=== PATIENT | male | born 1950 | race Caucasian/White ===

== ENCOUNTER 2024-09-24 06:52 | Inpatient (IN) | payer MEDICARE, OTHER ==
[~2024-09-24] VITALS: Ht 180.3 cm; Wt 124.5 kg
--- NOTE | 2024-09-24 07:09 | Physician Documentation ---
History of Present Illness ~ Chief Complaint: Chest Pain Stated Complaint: CHEST PAIN Time Seen by MD: 07:03 HPI This is a very pleasant 74-year-old gentleman who self-reported history of high blood pressure, normally sees Dr. Xuan Rosa, recent visits a week ago where he had carotid ultrasound, no stress test in over a year, comes in for evaluation of sudden unprovoked chest pain that he describes as somebody sitting on my chest moderate to severe in its intensity, accompanied by shortness a breath, exertional end-stage your, radiating to his back. Palliated by rest. He did report diaphoresis. Never experienced anything like that in the past. The back pain is somewhat similar to his chronic back pain for which he sees chiropractor, however much more severe. He went to see his chiropractor earlier today and was told to go immediately to the emergency department. Does report some nausea. No concern for tobacco, alcohol or illicit substances use Medication Reconciliation Allergies: Coded Allergies: No Known Allergies (Unverified , 09/24/24) Review of Systems ROS 10 point review of systems was performed and unless noted above in HPI is negative for acute process/complaint. Physical Exam Vital Signs: Temperature: 97.4, Source: Temporal, Heart Rate: 69, Respiratory Rate: 15, BP: 142/63, Pulse Oximetry: 99, Weight: 124.550 Physical Exam GENERAL: Awake, alert, oriented, GCS 15, no apparent distress, non-toxic appearing, answers questions, follows commands appropriately. HEENT: Atraumatic, normocephalic, pupils equal, extraocular muscles intact, sclerae anicteric, mucus membranes moist, oropharynx is clear, no stridor. NECK: supple, full active range of motion, trachea midline, no thyromegaly, no lymphadenopathy, no JVD. CARDIOVASCULAR: regular rate/rhythm, no murmurs/gallops/rubs, Pulses are 2+ in all extremities and symmetric. Capillary refill less than 2 seconds. PULMONARY: Nonlabored, good air movement ,no respiratory distress, speaking in full sentences, clear to auscultation bilaterally, no wheezing, no ronchi, no rales, no accessory muscle use. GASTROINTESTINAL: Soft, non-tender, non-distended, normal active bowel sounds, no organomegaly, no pulsatile masses, no CVA tenderness. NEUROLOGIC: Lucid with normal mental status. Normal facial symmetry. Moves all extremities symmetrically and with purpose. No truncal ataxia. Speech is fluid without evidence of dysarthria or aphasia, no focal deficits appreciated. MUSCULOSKELETAL: There is full range of motion of all extremities. There is no joint pain or joint swelling or joint erythema. There is no muscle pain or tenderness or swelling. EXTREMITIES: warm, well-perfused, no cyanosis, no clubbing, no edema, no acute deformities. Skin: warm, dry, no rashes or lesions, no jaundice, no petechiae orpurpura. No ecchymosis. PSYCHIATRIC: Normal affect, normal insight, normal concentration. Focused exam: [] Progress Results/Orders Results/Orders Orders - JOEY STROUD DO Chest,Single View (09/24/24 06:57) Monitor (09/24/24 06:57) Saline Lock (09/24/24 06:57) Oxygen (09/24/24 06:57) Hs Troponin I W Calculations (09/24/24 09:57) Ct Chest Abdomen Pelvis (09/24/24 08:10) Completed Orders - JOEY STROUD DO Chest,Single View (09/24/24 06:57) Cbc/Diff (09/24/24 06:57) BMP (09/24/24 06:57) PBNP (09/24/24 06:57) Electrocardiogram (09/24/24 06:57) Hs Troponin I W Calculations (09/24/24 06:57) Hs Troponin I W Calculations (09/24/24 08:57) Iohexol 350mg/Ml 100ml (Omnipaque 350mg/ (09/24/24 07:51) Ct Chest Abdomen Pelvis (09/24/24 08:10) Vital Signs 09/24/24 09/24/24 09/24/24 09/24/24 06:58 07:12 07:32 08:32 Temp 97.4 97.4 97.4 Pulse 69 59 57 Resp 15 12 12 13 B/P (MAP) 142/63 153/72 (99) 152/65 (94) Pulse Ox 99 94 98 O2 Flow Rate 0 2.0 Laboratory Tests Test 09/24/24 07:05 09/24/24 09:58 White Blood Count 6.7 Red Blood Count 4.41 L Hemoglobin 14.3 Hematocrit 41.7 L Mean Corpuscular Volume 94.5 Mean Corpuscular Hemoglobin 32.4 H Mean Corpuscular Hemoglobin Concent 34.2 Red Cell Distribution Width 12.8 Platelet Count 227 Mean Platelet Volume 7.7 Neutrophils (%) (Auto) 64.3 Lymphocytes (%) (Auto) 24.9 Monocytes (%) (Auto) 8.5 Eosinophils (%) (Auto) 2.0 Basophils (%) (Auto) 0.3 Neutrophils # (Auto) 4.3 Lymphocytes # (Auto) 1.7 Monocytes # (Auto) 0.6 Eosinophils # (Auto) 0.1 Basophils # (Auto) 0.0 CBC Comment Sodium Level 140 Potassium Level 4.0 Chloride Level 103 Carbon Dioxide Level 28.8 Anion Gap 8 Blood Urea Nitrogen 22 H Creatinine 1.73 H Estimated GFR/1.73 m2 39 BUN/Creatinine Ratio 12.7 Glucose Level 115 H Calcium Level 8.7 Troponin I High Sensitivity 7 8 Pro-B-Type Natriuretic Peptide 80 Albumin 3.9 Chemistry Comments Troponin I High Sens Percent Delta 14 Troponin I Hi Sens Absolute Change 1 EKG/XRAY/CT/US/VASC/MRI EKG : Additional Comment EKG was obtained and interpreted by myself shows sinus rhythm of 72, prolonged NH interval of 225, wide QRS with a right bundle, no QT prolongation, right axis, no STEMI. Heart Score: Heart Score Response (Comments) Value History Moderate Suspicious 1 EKG Repolarization Disturb 1 Age >65 2 Risk Factors 1 or 2 risk factors 1 Total 5 Medical Decision Making Findings Facility Status: ED Holds, [facility] process The plan was discussed with the patient, who demonstrates clear understanding of the plan and is in agreement with the plan unless otherwise noted in the chart. All questions have been answered, all concerns were addressed unless otherwise documented. I was available throughout their ED stay for frequent reassessment and questions. Differential Diagnoses (considered and possible or likely): [Differential diagnosis considered includes chest wall pain, pleurisy, pneumonia, pulmonary embolus, GERD, esophagitis, gastritis, anxiety, stress reaction, costo chondritis, acute coronary syndrome, aortic dissection, pericarditis, myocarditis, or pneumothorax.] ??Differential Diagnoses (considered and unlikely, not requiring evaluation currently): [See above] MDM Data Please see HPI for the following: Independent Historians and external Records Review. Historian: [Patient] Independent Historians: ?[Record review] Medication Management: [Reviewed medication list] Social History and determinants: [Reviewed] Please see the body of the note for the following: Any independent interpretations of ECG, imaging studies. All vitals signs/haemodynamics, ordered tests were independently reviewed and interpreted by myself. Nursing triage complaint and vitals reviewed, additional nursing notes were reviewed as available and I agree unless otherwise noted or documented in contradiction in the chart Vital Signs: Independently reviewed Labs: Independently interpreted Imaging: Independently interpreted Old Medical Records: Independently reviewed, see HPI for relevant summary and information Pulse Oximetry: [99%] interpreted as [normal on room air] by me [Tours Hostess: [Regular Rate, Regular rhythm, no ectopy, NSR] reviewed and interpreted by me] Additionally notably showing: [Hemodynamics reviewed. The patient isn't febrile, not tachycardic, no evidence of hypotension respiratory distress. Laboratory studies showed no leukocytosis, no anemia, normal platelets. Metabolic panel shows acute kidney injury versus CKD. Patient reports history of CKD. Troponin is negative. Chest x-ray was obtained showing no acute cardiopulmonary disease. ] Tests considered but not ordered include: [Stress test and echo can be done on an inpatient basis] Social Determinants of Health Impact: Patient was evaluated in [facility] [place] to healthcare due to below par ratio of patient to medical providers. [] Comorbid Conditions Impacting Present Evaluation and Care/Treatment: [Multiple, see list] Management Discussions with other Healthcare Providers: [Hospitalist regarding admission] Treatment and Disposition Medication Management (Given or considered): []. See EMR for details Consideration for Hospitalization/Escalation/Deescalation of Care: Admission for observation has been considered, appears to be necessary for further workup of this gentleman is highly concerning chest pain in the setting of risk factors ?ED Course:?[No clinical deterioration.] ?Shared decision making:?[] Code status:?FULL Please see the full Electronic Medical Record for full details of nursing documentation, medications list, other records of complete past medical history and conditions, vital signs, laboratory studies, and any radiologic study interpretations by radiologists. Portions of this note were completed using [employer] dictation software and as a result there may exist minor errors in spelling. I have reviewed elements of past family and social history and agree as included in note. Departure Disposition: 09 ADMITTED INPATIENT Admitted to Inpatient Unit: to hospitalist Admission Level of Care: Med/Surg with Tele Impression: Primary Impression: Acute chest pain Condition: Stable Referrals: NO PRIMARY CARE PROVIDER (PCP) Signature Scribe Signature: No scribe Attestation: This note accurately reflects clinical decisions, work performed by myself, Joey Stroud, JOEY APONTE DO Sep 24, 2024 07:09
[2024-09-24 07:19] LABS: MEAN PLATELET VOLUME 7.7 FL (7.4-10.4); RED CELL DISTRIBUTION WIDTH 12.8 % (11.5-14.5)
--- NOTE | 2024-09-24 07:27 | RADIOLOGY REPORT ---
EXAM: XR Chest, 1 View CLINICAL INDICATION: Pain TECHNIQUE: Frontal view of the chest. COMPARISON: No relevant prior studies available. FINDINGS: LUNGS AND PLEURAL SPACES: Unremarkable. No consolidation. No pneumothorax. HEART: Unremarkable. No cardiomegaly. MEDIASTINUM: Unremarkable. Normal mediastinal contour. BONES/JOINTS: Unremarkable. No acute fracture. IMPRESSION: No acute cardiopulmonary process.
--- NOTE | 2024-09-24 07:35 | ELECTROCARDIOGRAPH REPORT ---
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 Savage Anguiano Measurements Intervals [place] Rate: 72 P: 39 CO: 225 QRS: 121 QRSD: 149 T: 4 QT: 402 QTc: 440 Interpretive Statements Sinus rhythm Supraventricular bigeminy Prolonged CO interval RBBB and LPFB Electronically Signed On 09-25-2024 10:24:[address] Savage Anguiano Please click the below link to view image of tracing.
[2024-09-24 07:42] LABS: CREATININE 1.73 MG/DL (0.60-1.10); PRO BRAIN NATRIURETIC PEPTIDE 80 PG/ML (0-125); TOTAL CARBON DIOXIDE 28.8 MMOL/L (24-32); eCRCL 41 ML/MIN; eGFR 39 ML/MIN
--- NOTE | 2024-09-24 09:01 | RADIOLOGY REPORT ---
Exam: CT CT CHEST ABDOMEN PELVIS History: severe chest pain -> rad back --> lower back Comparison Study: None Technique: CT of the chest, abdomen and pelvis was obtained without intravenous contrast. Coronal an d sagittal reformatted images are submitted. Radiation Dose Information: CT Dose: CTDI volume is 31.3 mGy. Dose-length product is 1856.2 mGy*cm Findings: Study limited without intravenous contrast. Lower neck: Unremarkable thyroid. Lungs: Scattered opacities in the right upper and right lower lobe. Pleura: No pneumothorax or pleural effusion. Central airways: Patent. Heart/Vascular Structures: The heart is normal in size. No pericardial effusion. Coronary artery ayse cifications. Normal caliber thoracic aorta. No Fat stranding. Aorta otherwise not evaluated without intravenous contrast. Lymph Nodes: No adenopathy. Liver: The liver is normal in size. No focal lesions. Gallbladder and Biliary Tree: Unremarkable gallbladder. No biliary ductal dilatation. Spleen: Unremarkable. Pancreas: Unremarkable unenhanced appearance of the pancreas. Adrenal Glands: 1.9 cm left adrenal nodule. The right adrenal gland is unremarkable. Kidneys: No intrarenal calculi or hydronephrosis. Right renal cysts. Bladder: Unremarkable Bowel: The stomach is grossly normal in appearance. Small bowel normal in caliber. Sigmoid diverticu losis without acute diverticulitis. Normal caliber appendix without inflammatory changes. Ascites: Absent. Lymphadenopathy: No mesenteric, retroperitoneal or periportal lymphadenopathy. Abdominal Wall and Mesentery: Unremarkable. Vasculature: The visualized abdominal aorta is normal in size and caliber. No fat stranding surround ing the abdominal aorta. Abdominal aorta otherwise not evaluated without intravenous contrast. Pelvic Organs: Unremarkable Musculoskeletal: No aggressive focal bony lesions, acute fractures or dislocation. Hip prosthesis. In tervertebral disc space narrowing at L5-S1 with partial fusion across the disc space. Soft tissues: Bilateral fat containing inguinal hernias. IMPRESSION: 1. Limited study without intravenous contrast. Within this limitation no acute process in the chest, abdomen or pelvis. 2. Coronary artery calcifications. 3. Colonic diverticulosis without acute diverticulitis. 4. 1.9 cm left adrenal nodule incompletely characterized on this noncontrast study. All CT scans at this medical facility are performed using dose modulation techniques as appropriate t o a performed exam including the following: Automated exposure control was utilized; adjustment of th e MA and/or KV according to patient size; and use of iterative reconstruction technique.
[2024-09-24] MEDS: PERFLUTREN PROTEIN-A MICROSPHR (Optison) 0.22 MG/ML 3ML VIAL IV ONE (11:05)
[2024-09-24] MEDS ORDERED: potassium Cl 40MEQ/1/2NS 520ml 520 ML IV PRN (11:05)
[2024-09-24] MEDS ORDERED: magnesium hydroxide 30ml (MOM) UD suspension PO PRN (11:05)
[2024-09-24] MEDS ORDERED: magnesium sulf-water 2g/50mL 50 ML IV PRN (11:05)
[2024-09-24] MEDS ORDERED: magnesium sulf-water 4G/100mL 100 ML IV PRN (11:05)
[2024-09-24] MEDS ORDERED: potassium Cl 20 mEq SR tablet PO PRN ×2 (11:05)
[2024-09-24] MEDS ORDERED: mag hydrox/Alum hydrox/simeth 30ml oral suspension PO PRN (11:05)
[2024-09-24] MEDS ORDERED: ondansetron/PF 4mg/2ml inj IV PRN (11:05)
[2024-09-24 13:45] VITALS: RESP 18; O2SAT 100
[2024-09-24 13:57] VITALS: BP 138/71; PULSE 52; RESP 18; TEMP 97.3; O2SAT 100
[2024-09-24] MEDS: normal saline 1000ml 1,000 ML IV SCH (14:23)
[2024-09-24] MEDS ORDERED: aminophylline 250mg/10ml inj. IV PRN (18:35)
[2024-09-24] MEDS ORDERED: metoprolol tartrate 1mg/ml inj IV PRN (18:35)
--- NOTE | 2024-09-24 18:40 | HISTORY AND PHYSICAL ---
History & Physical Providers to CC ~ History of Present Illness Reason for Admit\Complaint: Chest pain eval for ACS History of Present Illness This is a 74-year-old male who presents to ED with chest pain occurring this morning. The patient initially woke up this morning and had numbness and paresthesias in his left hand and arm he has noticed edema in the upper extremity for three days as well. 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 the patient has a no history of cardiac disease however follows with Dr. Rosa and has a history of bilateral lower extremity DVT and a pulmonary embolus. The patient also states he has been fatigued for greater than one-week does not have any energy. The patient does have a creatinine 1.73 on admission. His troponins has been negative and I evaluated the patient when he was in the midst of having a echocardiogram for which the residential air sealing technician mentioned there was no significant findings. The patient is admitted to the ortho floor on case monitor with a stress test ordered for the morning. Allergies: Coded Allergies: No Known Allergies (Unverified , 09/24/24) Past Medical History Past Medical History Bilateral lower extremity DVT Pulmonary embolism Throat cancer treated with chemotherapy and radiation Bladder cancer treated with surgical excision Past Surgical History Surgical History Comment Left femur ORIF with pinning Left hip arthroplasty Bladder tumor excision Family History Family History: FH: CVA (cerebrovascular accident) FATHER MOTHER FH: melanoma MOTHER Past Social History Social History Comment Does not smoke cigarettes, rare alcohol intake, denies any illicit drug use. Full code status ROS ROS Except for positives in the HPI the rest of the 14 point review systems is negative Exam Vitals: Vital Signs Date Time Temp Pulse Resp B/P (MAP) Pulse Ox O2 Delivery O2 Flow Rate FiO2 09/24/24 14:43 49 09/24/24 13:57 97.3 18 138/71 (93) 100 09/24/24 13:45 Nasal Cannula 2.0 28 General: Gen. No acute distress alert and oriented 4 Lungs clear to ascultation bilaterally, no wheezes rales or rhonchi appreciated Heart normal sinus rhythm no murmurs rubs or clicks noted Abdomen soft nontender bowel sounds are normoactive Lower extremities no clubbing cyanosis, nor edema appreciated bilaterally Diagnostic Data Last Recorded Lab Results: 09/24/24 0705 09/24/24 0705 Counseling Services Smoking & Tobacco Cessation: N/A Advance Care Planning Advanced Care plannin - 30 Minutes Problems: (1) Acute chest pain Status: Acute Additional Plan # chest pain eval for ACS Lexiscan stress test as ordered Echocardiogram # history of DVT bilaterally # history of pulmonary embolism Awaiting med reconciliation # bladder cancer Cured with the excision # throat cancer Cured with radiation and chemotherapy # kidney disease Eval for CHIOMA versus CDK with daily CMP # DVT prophylaxis SQ Lovenox I spent a total of 17 minutes on reviewing various resuscitative measures/ ACP with the patient at the time of admission. The patient has decided on full code status Date of Service: Sep 24, 2024 Billing Provider: MARYBETH BRAND DO Common Visit Codes: 88539-[id number] INP/OBS CARE (HIGH) Secondary Visit Codes: 47250-[id number] CARE PLAN 30 MINUTES MARYBETH BRAND DO Sep 24, 2024 18:40
[2024-09-24 19:08] VITALS: BP 110/75; PULSE 57; RESP 21; TEMP 97.2; O2SAT 97
--- NOTE | 2024-09-24 19:35 | CARDIOLOGY REPORT ---
APPROVED REPORT EXAM: Comprehensive 2D, Doppler, and color-flow Echocardiogram. Patient Location: 4[address] Heart Rate: 50's bpm Rhythm: SINUS BRADYCARDIA WITH TRIGEMINAL PAC's Indications CHEST PAIN Fire And Safety Helper: Ines Rosa MD Previous echo: 03-02-23 [facility] EF 65-70%, LAE, mLVH, trMR, trTR 2D Dimensions RVDd 3.0 cm IVSd 1.0 (0.7-1.1cm) LVDd 5.2 cm PWd 1.2 (0.7-1.1cm) IVSs 1.4 (0.8-1.2cm) LVDs 3.5 (2.5-4.0cm) PWs 1.8 (0.8-1.2cm) LVOT Diameter 2.15 (1.8-2.4cm) IVC 25.55 mmFS (%) 32.5 % SV 79.8 ml CO 4.1 L/min M-Mode Dimensions Left Atrium(MM) 4.08 (2.5-4.0cm) Aortic Root 3.54 (2.2-3.7cm) Aortic Cusp Exc 1.85 (1.5-2.0cm) Aortic Valve AoV Peak Jeff. 210.6 cm/s AoV VTI 43.1 cm AO Peak GR. 17.7 mmHg AO Mean GR. 9 mmHg LVOT VTI 24.81 cm LVOT Peak Jeff. 153.5 cm/s MORGAN(VTI)/BSA 2.10 cm2/m2 MORGAN (VTI) 2.10 cm2 Mitral Valve MV Peak Gr. 4 mmHg MV PHT 56 ms MVA (PHT) 3.93 cm2 MV OKua704.5 cm/s LEFT VENTRICLE Normal LV size and wall thickness. Overall systolic function is hyperdynamic. LVEF is 75%. RIGHT VENTRICLE RV is normal size and function. ATRIA The left atrium size is upper limit normal. AORTIC VALVE Trileaflet AV appears mildly sclerotic without stenosis. No insufficiency. Increased velocities throu ghout detected as a result of the hyperdynamic function. MITRAL VALVE Mild MV annular calcification without stenosis. Trace regurgitation. TRICUSPID VALVE TV appears structurally normal with trace regurgitation. PULMONIC VALVE Normal PV without stenosis, physiologic insufficiency. GREAT VESSELS The aortic root is normal in size. IVC is dilated and collapses less than 50% with inspiration. PERICARDIUM Normal pericardium. No effusion. Other Information Study Quality: Adequate Conclusion Normal LV size and wall thickness. Overall systolic function is normal. LVEF is 65-70%. RV is normal size and function. The left atrium size is normal. Trileaflet AV appears mildly sclerotic without stenosis. No insufficiency. Increased velocities thro ughout detected as a result of the hyperdynamic function. Mild MV annular calcification without stenosis. Trace regurgitation. TV appears structurally normal with trace regurgitation. Normal pericardium. No effusion.
[2024-09-24] MEDS ORDERED: LOSA-415 PO (19:37)
[2024-09-24] MEDS ORDERED: RIVA20TA PO (19:37)
[2024-09-24] MEDS ORDERED: ROSU10TA72 PO (19:37)
[2024-09-24] MEDS ORDERED: FAMO40TA73 PO (19:37)
[2024-09-24] MEDS ORDERED: enoxaparin 40mg/0.4ml syringe SQ SCH (20:00)
[2024-09-24] MEDS: K and/or MAG REPLACEMENT MC SCH (20:00)
[2024-09-24] MEDS: docusate sod 100mg capsule PO SCH (20:16)
[2024-09-24 20:50] VITALS: RESP 18; O2SAT 100
[2024-09-24 22:27] VITALS: BP 130/58; PULSE 55; RESP 18; TEMP 97.4; O2SAT 98
[2024-09-25] VITALS (12 sets, daily range): BP systolic 111–149; BP diastolic 60–71; PULSE 52–83; RESP 14–21; TEMP 96.9–97.6; O2SAT 94–100
[2024-09-25 05:30] LABS: MEAN PLATELET VOLUME 8.0 FL (7.4-10.4); RED CELL DISTRIBUTION WIDTH 12.5 % (11.5-14.5)
[2024-09-25 06:05] LABS: CREATININE 1.58 MG/DL (0.60-1.10); TOTAL CARBON DIOXIDE 25.3 MMOL/L (24-32); eCRCL 45 ML/MIN; eGFR 43 ML/MIN
[2024-09-25] MEDS: regadenoson 0.4mg/5ml syringe IV PRN (10:00)
[2024-09-25] MEDS: morphine 4 MG/ML inj SYRINge IV ONE (11:17)
--- NOTE | 2024-09-25 14:44 | RADIOLOGY REPORT ---
CLINICAL INFORMATION: Chest pain. TECHNIQUE: 9.4 mCi of technetium 99m sestamibi was infused at rest. Rest SPECT imaging was obtained. Routine protocol for Lexiscan stress study was performed with 0.4 mg of Lexiscan. 35.6 mCi of techne tium 99m sestamibi was infused. Stress SPECT imaging was obtained. COMPARISON: None FINDINGS: Resting heart rate of 53 BPM increased to maximum rate of 86 BPM. Resting blood pressure of 137/64 increased to 149/68. There were no significant ST-T wave EKG changes. The patient complained of chest pressure, 4/10 during stress. There is no evidence of stress induced ischemia or stress dilatation of the left ventricle. TID ratio is 1.05. Wall motion imaging appears grossly normal. Calculated left ventricular ejection fraction is 58%. IMPRESSION: 1. No evidence of stress-induced ischemia. 2. Left ventricular ejection fraction is 58%.
--- NOTE | 2024-09-25 22:12 | PROGRESS NOTE ---
Daily Progress Note Providers to CC ~ Antibiotic Timeout Antibiotic Ordered?: No Subjective The patient has been chest pain-free since admission in his Lexiscan stress test is negative the patient has no acute complaints today and is hoping to be discharged Objective Vital Signs Date Time Temp Pulse Resp B/P (MAP) Pulse Ox O2 Delivery O2 Flow Rate FiO2 09/25/24 20:34 18 100 Room Air 09/25/24 19:38 96.9 54 133/68 (89) 09/25/24 08:00 0.0 09/24/24 13:45 28 Result Diagram: 09/25/2444709/25/24447 Gen. No acute distress alert and oriented 4 Lungs clear to ascultation bilaterally, no wheezes rales or rhonchi appreciated Heart normal sinus rhythm no murmurs rubs or clicks noted Abdomen soft nontender bowel sounds are normoactive Lower extremities no clubbing cyanosis, nor edema appreciated bilaterally Problem\Assessment\Plan Problems/Diagnosis: (1) Acute chest pain # chest pain- Mi is ruled out Negative Lexiscan stress test Negative troponin Echocardiogram demonstrated an LVEF of 65-70% # possible CHIOMA Continue monitor daily metabolic panels # history of DVT bilaterally # history of PE Continue Eliquis # bladder cancer Cured with the excision # throat cancer Cured with radiation and chemotherapy # DVT prophylaxis SQ heparin Date of Service: Sep 25, 2024 Billing Provider: MARYBETH BRAND DO Common Visit Codes: [id number] INP/OBS CARE(HIGH) MARYBETH BRAND DO Sep 25, 2024 22:12
[2024-09-26 05:23] LABS: MEAN PLATELET VOLUME 7.8 FL (7.4-10.4); RED CELL DISTRIBUTION WIDTH 12.6 % (11.5-14.5)
[2024-09-26 05:47] LABS: CREATININE 1.41 MG/DL (0.60-1.10); TOTAL CARBON DIOXIDE 28.6 MMOL/L (24-32); eCRCL 50 ML/MIN; eGFR 49 ML/MIN
[2024-09-26 06:00] VITALS: BP 148/73; PULSE 54; RESP 16; TEMP 98.4; O2SAT 96
[2024-09-26 07:10] VITALS: BP 146/71; PULSE 60
[2024-09-26 07:35] VITALS: BP 113/76; PULSE 65
[2024-09-26 08:50] VITALS: BP 94/55; PULSE 81
[2024-09-26 10:00] VITALS: BP 135/78; PULSE 53; RESP 15; TEMP 97.2; O2SAT 93
--- NOTE | 2024-09-26 19:25 | DISCHARGE SUMMARY ---
Discharge Summary Providers to No new complaint, resting comfortably in the bed, asking to be discharged home ~ Discharge Summary Assessment Acute chest pain secondary to acute coronary history of DVT bilateral lower extremity History of PE Bladder cancer l aryngeal cancer cured Chronic kidney disease Chronic CHF, preserved ejection fraction Admission Diagnosis: Chest pain eval for [place] Admission Diagnosis Comment: Acute chest pain secondary to acute coronary history of DVT bilateral lower extremity History of PE Bladder cancer l aryngeal cancer cured Chronic kidney disease Chronic CHF, preserved ejection fraction Hospital Course DATE OF ADMISSION: September 24, 2024 DATE OF DISCHARGE:, September 26, 2024 Discharge Diagnosis\Comment: acute coronary, ruled out history of DVT bilateral lower extremity History of PE Bladder cancer l aryngeal cancer cured Chronic kidney disease Chronic CHF, preserved ejection fraction Operations\Procedures: Non Consultants: Non Complications: None Condition on DC: Stable for transfer Discharge Summary: This is a 74-year-old male who presents to ED with chest pain occurring this morning. The patient initially woke up this morning and had numbness and paresthesias in his left hand and arm he has noticed edema in the upper extremity for three days as well. 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 the patient has a no history of cardiac disease however follows with Dr. Rosa and has a history of bilateral lower extremity DVT and a pulmonary embolus. The patient also states he has been fatigued for greater than one-week does not have any energy. The patient does have a creatinine 1.73 on admission. His troponins has been negative and I evaluated the patient when he was in the midst of having a echocardiogram for which the aerial survey technician mentioned there was no significant findings. The patient is admitted to the ortho floor on property assessment monitor with a stress test ordered for the morning. After admission patient was extensively evaluated treated, acute coronary syndrome ruled out, he has no complaint today, asking to be discharged home, he will be discharged in stable condition, follow-up PCP Cardiology in the morning, medication reconciled, today on physical exam, Vital signs, stable ,afebrile. Pulse Oximetry reflects adequate oxygenation. General: well developed, well nourished. Awake , alert, and oriented x4, resting comfortably in the bed, in no acute distress . Skin: Warm, dry, no pallor, no rash or petechiae. HEENT: Atraumatic, normocephalic, EOMI, anicteric sclera B; pink conjunctiva; PERRLA, normal oropharynx, moist oral and nasal mucosa. Tympanic membrane , nose , throat clear. Neck: Trachea midline. Supple, full range of motion, no JVD, bruit , hepa tojugular reflex , lymphadenopathy or masses, or other lesions Cardiac: Regular rhythm, regular rate no murmurs, rubs, or gallops. Normal S1 and S2, no S3 noticed. PMI is normal. Respiratory: Equal breath sounds bilaterally, no tachypnea; lungs clear to auscultation bilaterally, no wheezing ,rub or rales, or crackles. Chest wall is symmetric and without deformity. No signs of trauma. Chest wall is nontender. No signs of respiratory distress. Resonance is normal upon percussion bilaterally. Gastrointestinal: Abdomen symmetric, non-distended, soft, non-tender, normal bowel sounds x4 quadrant, normoactive, no hepatosplenomegaly , no masses , no bruit, no flank pain bilaterally. No voluntary guarding, rebound, or rigidity. No tenderness to percussion. No pulsatile masses. Equal femoral pulses. No Nunez's sign or McBurney point tenderness. Back; no CVA tenderness bilaterally, no deformities. Neck and back are without deformity as well. No tenderness noted on palpation of the spinous processes. Spinous processes are midline. Cervical, thoracic, and lumbar paraspinal muscles are not tender and are without spasm. : normal external genitalia, without lesions, swelling, masses or tenderness. Musculoskeletal: Extremities, normal range of motion, non-tender, muscle strength 5/5 x 4. Negative Homans signs bilaterally on lower extremity. Distal pulses full symmetrical, no clubbing, cyanosis , edema. Neurological: Speech is clear, alert, and oriented x 4. No motor or sensory deficit, deep tendon reflexes normal, cerebellar intact. Cranial nerves II-XII intact. Psych: Alert and or appropriate, normal affect. Vascular: Good distal pulses, which are equal x4; capillary refill less than 2 seconds. Lymphatic, no lymphadenopathy. *Problems/Diagnosis: (1) Acute chest pain Status: Acute Total Time Spent on D/C: > 30 Minutes Date of Service: Sep 26, 2024 Billing Provider: MARIANA OAKLEY MD Common Visit Codes: 91582-CLO/OBS DISCH DAY >30min MARIANA OAKLEY MD Sep 26, 2024 19:24
== END 2024-09-26 13:35 | disposition home or self-care (01) | DRG 311 ==
LOC: ER 06:53 → ED HOLD 11:09 → ORTHO 4S 13:38
PROVIDERS: ADMIT Family Medicine; ATTEND Family Medicine
PROC: 4A02XM4 Measurement of Cardiac Total Activity, External Approach (ICD-10-PCS; principal; 2024-09-25)
PROC: 3E033HZ Introduction of Radioactive Substance into Peripheral Vein, Percutaneous Approach (ICD-10-PCS; 2024-09-25)
DX: I24.9 Acute ischemic heart disease, unspecified (principal); N17.0 Acute kidney failure with tubular necrosis; I50.32 Chronic diastolic (congestive) heart failure; N18.9 Chronic kidney disease, unspecified; Z96.642 Presence of left artificial hip joint; Z85.51 Personal history of malignant neoplasm of bladder; Z85.819 Personal history of malignant neoplasm of unspecified site of lip, oral cavity, and pharynx; Z86.711 Personal history of pulmonary embolism; Z86.718 Personal history of other venous thrombosis and embolism; Z92.21 Personal history of antineoplastic chemotherapy; Z92.3 Personal history of irradiation
CPT/HCPCS: 36415; 71045; 71250; 74176; 78452; 80048; 80053; 83735; 83880; 84484; 85025; 87081; 93005; 93017; 93306; 96360; 99285; A4615; A6258; A9500; G0378; J2785; J7030; Q9967